=== PATIENT | male | born 1980 | race Caucasian/White ===

== ENCOUNTER → 2018-01-02 17:44 | Outpatient (CLI) | payer MEDICAID, SELFPAY ==
--- NOTE | 2018-01-02 17:47 | CT_ITS ---
STUDY: CT PELVIS WITH CONTRAST REASON FOR EXAM: Male, 37 years old. Left inguinal hernia. Right sided groin pain. RADIATION DOSAGE (If Supplied By Facility): CTDIvol = ( 28.21 ) mGy, DLP = ( 982.78 ) mGycm TECHNIQUE: Transaxial imaging of the pelvis was performed with oral contrast. 75 ml of Isovue 300 contrast was administered intravenously. Multiplanar coronal and sagittal images were reformatted. Individualized dose optimization techniques were used for this CT. COMPARISON: None. FINDINGS: Normal urinary bladder. Normal prostate and seminal vesicles. Normal visualized small intestine. Normal visualized colon. There is no pelvic fluid. There is no pelvic lymphadenopathy or mass lesion. Normal visualized pelvic arteries. There is a left inguinal hernia of omental fat extending into the upper scrotum.. There is slight tenting of the left dome of the bladder towards the hernia. Normal right inguinal region. Normal scrotum. There are minimal degenerative changes of the lumbosacral spine. CT/Pelvis WITH IV Contrast IMPRESSION: 1. Left inguinal hernia of omental fat. 2. No other evidence of pelvic abnormality. Electronically Signed: Richi Daniels DO at 18:16 EDT Tel [phone], Service support ,
== END ==
PROVIDERS: Family Provider Nurse Practitioner Family; PCP Nurse Practitioner Family; Visit Provider Physician Assistant
DX: K40.90 Unilateral inguinal hernia, without obstruction or gangrene, not specified as recurrent (principal); I86.1 Scrotal varices
CPT/HCPCS: 72193; Q9967

== ENCOUNTER 2018-02-25 06:22 | Day surgery (SDC) | payer MEDICAID, SELFPAY ==
--- NOTE | 2018-02-22 10:01 | EKG12_ITS ---
Test Reason : PRE OP Blood Pressure : / mmHG Vent. Rate : 062 BPM Atrial Rate : 062 BPM P-R Int : 178 ms QRS Dur : 090 ms QT Int : 406 ms P-R-T Axes : 062 022 040 degrees QTc Int : 412 ms Normal sinus rhythm Normal ECG Confirmed by ARMAND DAUGHERTY, MARIA D ([id number]), news editor HELENA AGUILAR ([id number]) on 02/25/2018 2:04:33 PM Referred By: Florentino Melendez Confirmed By:MARIA D ACUNA MD
[2018-02-22 10:35] LABS: Hematocrit 46.1 % (40-54); Hemoglobin 16.4 g/dl (13.0-16.5); Mean Corp Hgb Conc 35.6 g/gl (32-36); Mean Corpuscular Hgb 30.8 pg (27.0-32.0); Mean Corpuscular Volume 86.7 fL (80-94); Mean Platelet Vol. 10.1 fl (6.2-12.0); Platelet Count 309 K/mm3 (150-450); RBC Distribution Width CV 12.6 % (11.6-14.6); Red Blood Count 5.32 M/mm3 (4.6-6.2); White Blood Count 6.9 K/mm3 (4.4-11.0)
[2018-02-22 10:36] LABS: Scan Indicated on CBC? Y/N NO
[2018-02-22 11:06] LABS: Anion Gap 9 (5-15); BUN 16 mg/dL (7-18); BUN/Creat Ratio 13.9 RATIO (10-20); Calcium,Total 8.7 mg/dL (8.5-10.1); Chloride 103 mmol/L (98-107); Creatinine, Serum 1.15 mg/dL (0.70-1.30); EST Glomerular Filtration Rate 75 mL/min (>60); Est Glom Filt Rate - Afr Amer 91 mL/min (>60); Glucose 66 mg/dL (74-106); Sodium Level 138 mmol/L (136-145)
[2018-02-25] VITALS (11 sets, daily range): BP systolic 90–131; BP diastolic 56–78; PULSE 53–66; RESP 14–18; TEMP 36.2–36.4; O2SAT 91–98; BMI 29.9
--- NOTE | 2018-02-25 09:25 | DCINST_ITS ---
Discharge Diet: Light diet - advance as tolerated Discharge Activity: Return to Normal Activity, May Drive - when you are no longer taking narcotic pain medications., May Shower - with the bandage in place 1-2 days after surgery. Lifting Restrictions: 20 pounds for 8 weeks. Additional Activity Instructions:: Climbing stairs is fine, walking is encouraged. Sitting in bed may be uncomfortable. Sitting up using your lateral muscles (sitting up sideways) is usually more comfortable. Do not drive, work heavy equipment of sign legal documents for 24 hours. If your hernia repair was an ingunial repair, you may have scrotal swelling, an ice pack and/or athletic support can provide more comfort. Pain medications may cause nausea, you should typically eat light foods as you take your pain medications. Pain medications may also cause constipation. If you have difficulty with this, discuss with your doctor. Call your doctor if your incision/area has: Continuous Slow Oozing, Sudden Increased Bleeding, Increased Pain/ Swelling, Increased Redness, Foul Smelling Discharge Call your doctor if you observe: Fever of 101 or Higher Suture Line Care: Avoid Pulling/Pushing, Avoid Pinching/Bending Additional Dressing/Incision Instructions:: Leave the operative bandage on for 2 -3 days. When you remove the bandage, leave the steri-strips on place until your follow up appointment or they fall off. Allergies/Adverse Reactions: Allergies Penicillins Allergy (Verified 02/20/18 15:03) Anaphylaxis Medications to take at Discharge Lamotrigine [Lamictal] 200 mg PO DAILY 05/23/13 Omeprazole [Prilosec] 40 mg PO DAILY 05/23/13 multivitamin tablet 1 tab PO QDAY 12/21/17 paroxetine 30 mg tablet 40 mg PO QDAY 12/21/17 lisinopril 5 mg tablet 5 mg PO QHS 02/20/18 Oxycodone HCl/Acetaminophen [Percocet 5/325] 1 - 2 tab PO Q4H PRN PRN 4 Days # 30 tab 02/25/18 The following prescriptions were given: Oxycodone HCl/Acetaminophen [Percocet 5/325] 1 - 2 tab PO Q4H PRN PRN 4 Days # 30 tab PRN Reason: Pain Primary Care Physician: Renea Moreno NP-C [Primary Care Provider] - Test Results: Test results from this visit will be discussed in further detail at your follow- up appointment, if applicable. Please Follow Up With: Florentino Melendez MD - [phone] When: Plan to have a follow up appointment in 7 days. Call to schedule.
--- NOTE | 2018-02-25 09:25 | PCM.OPRPT ---
Problem List (1) Left inguinal hernia Status: Acute Report of Operation Date of Procedure: 02/25/18 Pre-Operative Diagnosis: K 40.9 left inguinal hernia Post-Operative Diagnosis: Same Surgery/Procedure Performed:: Laparoscopic left inguinal hernia repair Type of Anesthesia:: General Anesthesiologist: Kirby Grier Description of Procedure: Patient was brought into the operating room. Placed in the supine position. Under excellent general endotracheal intubation the abdomen was sterilely prepped and draped in the usual fashion. Local was injected supraumbilically curvilinear incision was made dissection was carried down to the fascia. Varies needle was placed inside the abdomen and the abdomen was insufflated to 15 torr. A 10/12 trocar was placed without difficulty. It was flanked by 2 #5 trochars placed under direct visualization without injury to underlying structures. Patient was placed in the head down and rotated to the left position. He was noted to have a left inguinal hernia indirect. The right side was stable with no hernia identified. I scored the peritoneum on the left side. I dissected down to Dwian's ligament. I dissected laterally bringing back the hernia sac without injury to the cord and vessel structures. I dissected further laterally. I fashioned a large 3 DMax mesh into the wound tacked it to Dwain's ligament with a pro-tacker tacked it superiorly and laterally with sparing tacks. I then reperitonealized the area covering the mesh completely. General inspection showed no signs of any adhesions. I remove the trochars under direct visualization. I closed the fascia the umbilical port with a figure 8 stitch of 0 Vicryl. Skin incisions were closed with subcuticular stitches of 4-0 Monocryl. Steri-Strips were applied. Sterile dressings were applied. The patient tolerated the procedure well. - Admit VTE Documentation VTE Present on Admission: No VTE Mechan Device Prophylaxis: SCD's VTE Pharm Prophylaxis ordered?: No Reason prophylaxis not ordered:: Treatment Not Indicated
[2018-02-25] MEDS: Bupivacaine Mpf 0.5% 30 ML VIAL (09:52)
[2018-02-25] MEDS: oxyCODONE 5 MG Tablet PO (12:40)
[2018-02-25] MEDS: Acetaminophen 325 MG Tablet PO (12:40)
== END 2018-02-25 13:56 | disposition home or self-care (01) ==
LOC: SDC 06:23
PROVIDERS: Family Provider Nurse Practitioner Family; PCP Nurse Practitioner Family; Visit Provider Surgery
PROC: (CPT 49650; principal; 2018-02-25 08:50)
DX: K40.90 Unilateral inguinal hernia, without obstruction or gangrene, not specified as recurrent (principal); K21.9 Gastro-esophageal reflux disease without esophagitis; I10 Essential (primary) hypertension; F31.9 Bipolar disorder, unspecified; F41.9 Anxiety disorder, unspecified; Z79.899 Other long term (current) drug therapy; Z87.891 Personal history of nicotine dependence
CPT/HCPCS: 49650; 36415; 80048; 85027; 93005; J7120; C1781; J2405

== ENCOUNTER → 2024-03-12 | Outpatient (CLI) | payer OTHER, SELFPAY ==
[2024-03-12 10:00] LABS: Absolute Lymphocyte Count 1.68 X10^3/uL (0.83-4.51); Absolute Neutrophil Count 2.7 X10^3/uL (2.0-7.7); Basophil# 0.07 X10^3/uL; Basophil% 1.4 % (0-1); Eosinophil# 0.08 X10^3/uL; Eosinophils% 1.6 % (0-5); Hematocrit 44.6 % (40-54); Lymphocyte # 1.68 X10^3/ul (0.83-4.51); Lymphocyte % 33.6 % (19-41); Mean Corp Hgb Conc 33.6 g/dL (32-36); Mean Corpuscular Volume 89.2 fL (80-94); Mean Platelet Vol. 9.6 fl (6.2-12.0); Monocyte# 0.45 X10^3/uL; NRBC Flagged by Analyzer 0 % (0-5); Platelet Count 305 K/mm3 (150-450); RBC Distribution Width CV 12.7 % (11.6-14.6); RBC Distribution Width SD 41.7 fl (35.1-43.9)
[2024-03-12 10:35] LABS: ALB/GLOB Ratio 1.1 RATIO (0.9-2.4); AST(SGOT) 14 U/L (15-37); Alanine Aminotransfer ALT/SGPT 25 U/L (16-61); Alkaline Phosphatase 78 U/L (45-117); Anion Gap 5 (5-15); BUN 17 mg/dL (7-18); BUN/Creat Ratio 15.6 RATIO (10-20); Chloride 107 mmol/L (98-107); Cholesterol 254 mg/dL (200); Creatinine, Serum 1.09 mg/dL (0.70-1.30); EST Glomerular Filtration Rate 78 mL/min (>60); Est Glom Filt Rate - Afr Amer 94 mL/min (>60); Globulin 3.6 g/dL (2.2-4.2); Glucose 95 mg/dL (74-106); High Density Lipoprotein 54 mg/dL; Potassium 4.3 mmol/L (3.5-5.1); Protein, Total 7.6 g/dL (6.4-8.2); Sodium Level 139 mmol/L (136-145); Thyroid Stim Hormone (TSH) 1.99 uIU/mL (0.358-3.74); Triglycerides 118 mg/dL; Very Low Density Lipoprotein 24 mg/dL (5-40)
[2024-03-15 17:07] LABS: Trileptal-Oxcarbazepine 3 ug/mL (10-35)
== END | disposition home or self-care (01) ==
PROVIDERS: PCP Nurse Practitioner Family; Referring Provider Registered Nurse; Visit Provider Registered Nurse
DX: Z79.899 Other long term (current) drug therapy (principal)
CPT/HCPCS: 36415; 80053; 80061; 82542; 84443; 85025